=== PATIENT | female | born 1990 | race Asian ===

== ENCOUNTER 2018-08-15 21:40 | Emergency (ER) | payer MEDICAID ==
[~2018-08-15] VITALS: Ht 165.1 cm; Wt 61.7 kg
[2018-08-15] MEDS ORDERED: FAMOTIDINE (10MG/ML) 2ML VL IV ONE (22:30)
[2018-08-15] MEDS ORDERED: SODIUM CHLORIDE 0.9% 1,000 ML IV ONE (22:30)
[2018-08-15 22:43] LABS: Basophils # (auto) 0 uL; Eosinophils # (auto) 0 uL; Eosinophils % (auto) 0.6 % (0.0-7.0); Lymphocytes # (auto) 2.1 uL; Mean Corpuscular Hemoglobin 21.7 pg (28.0-32.0); Neutrophils # (auto) 4.3 uL; Nucleated Red Blood Cells % 0.1 %; White Blood Cell 7.3 10^3/uL (4.4-10.8)
[2018-08-15 22:46] LABS: Basophils % (auto) 0.5 % (0.0-2.0); Hematocrit 40.3 % (36.0-46.0); Hemoglobin 12.6 g/dL (12.2-16.2); Lymphocytes % (auto) 28.6 % (10.0-50.0); Mean Corpuscular Hgb Conc. 31.2 g/dL (32.0-36.0); Mean Corpuscular Volume 69.6 fL (80.0-100.0); Monocytes # (auto) 0.8 uL; Monocytes % (auto) 11.2 % (0.0-12.0); Neutrophils % (auto) 59.1 % (37.0-80.0); Platelet Count (auto) 216 10^3/uL (140-450); Red Blood Cells 5.79 10^6/uL (4.0-5.20); Red Cell Distribution Width 13.6 % (11.8-14.3)
[2018-08-15 22:47] LABS: Urine Bacteria FEW /hpf (None Seen); Urine Blood TRACE /uL (Negative); Urine Specific Gravity 1.014 (1.001-1.035); Urine WBC <1 /hpf (0 - 5)
[2018-08-15 23:02] LABS: Potassium 3.5 mmol/L (3.5-5.1)
[2018-08-15 23:07] LABS: Albumin 3.7 g/dL (3.4-5.0); BUN/Creatinine Ratio 17.7; Bilirubin, Total 0.5 mg/dL (0.2-1.0); Total Protein 7.4 g/dL (6.4-8.2)
[2018-08-15] MEDS ORDERED: MAGNESIUM CITRATE SOLUTION 300 ML BTL PO ONE (23:15)
[2018-08-15] MEDS ORDERED: metroNIDAZOLE 500 MG TAB PO ONE (23:45)
[2018-08-16 00:10] VITALS: BP 103/63
== END 2018-08-16 00:18 | disposition home or self-care (01) ==
LOC: ER 21:51
DX: K29.00 Acute gastritis without bleeding (principal); K52.9 Noninfective gastroenteritis and colitis, unspecified; R14.3 Flatulence
CPT/HCPCS: 36415; 74176; 80053; 81001; 81025; 82150; 83690; 85025; 96361; 96374; 99284; J3490; J7030

== ENCOUNTER 2018-09-16 11:27 | Emergency (ER) | payer MEDICAID ==
[~2018-09-16] VITALS: Ht 160 cm; Wt 59.0 kg
[2018-09-16 12:33] LABS: Basophils # (auto) 0 uL; Eosinophils # (auto) 0 uL; Eosinophils % (auto) 0.4 % (0.0-7.0); Mean Corpuscular Hemoglobin 21.3 pg (28.0-32.0); Mean Corpuscular Hgb Conc. 30.5 g/dL (32.0-36.0); Monocytes # (auto) 0.4 uL; Neutrophils # (auto) 4.2 uL; Nucleated Red Blood Cells % 0.1 %
[2018-09-16 12:36] LABS: Basophils % (auto) 0.5 % (0.0-2.0); Hematocrit 43.3 % (36.0-46.0); Hemoglobin 13.2 g/dL (12.2-16.2); Lymphocytes # (auto) 1.7 uL; Lymphocytes % (auto) 26.5 % (10.0-50.0); Monocytes % (auto) 6.5 % (0.0-12.0); Neutrophils % (auto) 66.1 % (37.0-80.0); Platelet Count (auto) 222 10^3/uL (140-450); Red Blood Cells 6.19 10^6/uL (4.0-5.20); White Blood Cell 6.4 10^3/uL (4.4-10.8)
[2018-09-16 12:46] LABS: Potassium 3.5 mmol/L (3.5-5.1)
[2018-09-16 12:52] LABS: Urine Bacteria NONE SEEN /hpf (None Seen); Urine Blood TRACE /uL (Negative); Urine WBC <1 /hpf (0 - 5)
[2018-09-16 12:52] LABS: Albumin 4.1 g/dL (3.4-5.0); BUN/Creatinine Ratio 15.8; Bilirubin, Total 0.6 mg/dL (0.2-1.0); Calcium 8.8 mg/dL (8.5-10.1); Total Protein 7.9 g/dL (6.4-8.2)
[2018-09-16 16:21] VITALS: BP 100/65
[2018-09-16] MEDS: PANTOPRAZOLE 40 MG TAB PO ONE (16:21)
== END 2018-09-16 16:29 | disposition home or self-care (01) ==
LOC: ER 11:38
DX: K29.00 Acute gastritis without bleeding (principal)
CPT/HCPCS: 36415; 76705; 80053; 81001; 81025; 82150; 83690; 85025

== ENCOUNTER 2019-03-15 15:37 | Emergency (ER) | payer MEDICAID ==
[~2019-03-15] VITALS: Ht 160 cm; Wt 69.9 kg
[2019-03-15 15:53] VITALS: BP 109/71
== END 2019-03-15 17:10 | disposition home or self-care (01) ==
LOC: ER 15:37
DX: H60.91 Unspecified otitis externa, right ear (principal); Z90.49 Acquired absence of other specified parts of digestive tract

== ENCOUNTER 2019-05-19 17:13 | Emergency (ER) | payer MEDICAID ==
[~2019-05-19] VITALS: Ht 134.6 cm; Wt 74.8 kg
[2019-05-19 18:36] VITALS: BP 121/73
== END 2019-05-19 19:49 | disposition home or self-care (01) ==
LOC: ER 17:13
DX: S00.411A Abrasion of right ear, initial encounter (principal); Z90.89 Acquired absence of other organs; X58.XXXA Exposure to other specified factors, initial encounter; Y93.89 Activity, other specified; Y99.8 Other external cause status; Y92.89 Other specified places as the place of occurrence of the external cause

== ENCOUNTER 2021-11-17 10:47 | Emergency (ER) | payer MEDICAID ==
[~2021-11-17] VITALS: Ht 160 cm; Wt 61.2 kg
[2021-11-17] MEDS ORDERED: IBUP800T27 PO (13:01)
[2021-11-17 13:50] VITALS: BP 101/60
== END 2021-11-17 14:34 | disposition home or self-care (01) ==
LOC: ER 10:47
DX: S96.912A Strain of unspecified muscle and tendon at ankle and foot level, left foot, initial encounter (principal); Z90.49 Acquired absence of other specified parts of digestive tract; X50.1XXA Overexertion from prolonged static or awkward postures, initial encounter; Y93.67 Activity, basketball; Y92.89 Other specified places as the place of occurrence of the external cause; Y99.8 Other external cause status
CPT/HCPCS: 73610

== ENCOUNTER 2022-03-27 08:17 | Emergency (ER) | payer MEDICAID ==
[~2022-03-27] VITALS: Ht 160 cm; Wt 71.7 kg
[~2022-03-27 08:17] MED LIST: IBUP800T27 PO
[2022-03-27 10:49] VITALS: BP 95/54
[2022-03-27] MEDS ORDERED: IBUP600T27 PO (10:55)
[2022-03-27] MEDS ORDERED: AZIT500T66 PO (10:55)
== END 2022-03-27 11:03 | disposition home or self-care (01) ==
LOC: ER 08:17
DX: J03.90 Acute tonsillitis, unspecified (principal); Z20.822 Contact with and (suspected) exposure to COVID-19; Z90.49 Acquired absence of other specified parts of digestive tract; Z79.1 Long term (current) use of non-steroidal anti-inflammatories (NSAID)
CPT/HCPCS: 36415